=== PATIENT | male | born 2000 | race African-American/Black ===

== ENCOUNTER 2019-11-24 17:40 | Emergency (ER) | payer OTHER ==
[~2019-11-24] VITALS: Ht 180.3 cm; Wt 71.3 kg
[2019-11-24 20:25] LABS: ALBUMIN 4.2 GM/DL (3.2-5.2); ALT/SGPT 17 U/L (12-78); BASO % 0.3 % (0.0-1.0); BILIRUBIN,DIRECT 0.2 MG/DL (0.0-0.2); BILIRUBIN,TOTAL 0.7 MG/DL (0.2-1.0); BLOOD UREA NITROGEN 13 MG/DL (7-18); CARBON DIOXIDE LEVEL 26 MEQ/L (21-32); CHLORIDE LEVEL 106 MEQ/L (98-107); CREATININE FOR GFR 0.97 MG/DL (0.70-1.30); EOS % 0.4 % (0.0-3.0); GLUCOSE, FASTING 80 MG/DL (70-100); HEMATOCRIT 43.2 % (42.0-52.0); HEMOGLOBIN 14.5 g/dl (13.5-17.5); LIPASE 123 U/L (73-393); LYMPH # 0.9 10^3/uL (1.5-5.0); LYMPH % 13.2 % (24.0-44.0); MEAN CORPUSCULAR HEMOGLOBIN 29.9 pg (27.0-33.0); MEAN CORPUSCULAR HGB CONC 33.6 g/dl (32.0-36.5); MEAN CORPUSCULAR VOLUME 89.1 fl (80.0-96.0); MONO # 0.7 10^3/uL (0.0-0.8); MONO % 10.1 % (0.0-5.0); NEUTROPHILS # 5.2 10^3/uL (1.5-8.5); NEUTROPHILS % 75.7 % (36.0-66.0); PLATELET COUNT, AUTOMATED 216 10^3/uL (150-450); POTASSIUM SERUM 4.2 MEQ/L (3.5-5.1); RED BLOOD COUNT 4.85 10^6/uL (4.30-6.10); SODIUM LEVEL 138 MEQ/L (136-145); TOTAL PROTEIN 7.9 GM/DL (6.4-8.2); WHITE BLOOD COUNT 6.9 10^3/uL (4.0-10.0)
[2019-11-24 20:38] VITALS: BP 126/71
== END 2019-11-24 20:46 | disposition home or self-care (01) ==
LOC: M ED 17:40
DX: R19.7 Diarrhea, unspecified (principal)
CPT/HCPCS: 36415; 80048; 80076; 83690; 85025; 87880; 99284; U0003

== ENCOUNTER → 2019-12-14 | Outpatient (CLI) | payer OTHER | LOC: M LABSMTC 10:22 | PROVIDERS: ATTEND Family Medicine | DX: Z20.828 Contact with and (suspected) exposure to other viral communicable diseases (principal) | CPT/HCPCS: C9803; U0003 ==

== ENCOUNTER → 2020-02-29 | Outpatient (CLI) | payer OTHER ==
[~2020-02-29] MED LIST: ISOVUE-300 61% 50ML VIAL As Ordered ONE; LIDOCAINE 1% MDV 20ML VIAL As Ordered ONE; TRIAMCINOLONE ACETONIDE SUSP 40 MG/ML VIAL (J3301) As Ordered ONE
--- NOTE | 2020-02-29 17:02 | REP ---
INDICATION: LEFT HIP PAIN. COMPARISON: None TECHNIQUE: The procedure was performed by RUBIO Akbar, under the direct supervision of Dr. Faye. The benefits and risks of the procedure were explained to the patient, and an informed consent was obtained. Directly prior to the start of the procedure, a formal time-out was completed in the procedure room. The left femoral neck joint space was localized using fluoroscopic guidance. The skin was prepped and draped in a sterile fashion. Approximately 5 mL of 1% Lidocaine 10 mg/ml was used as a local anesthetic. Using fluoroscopic guidance, a #22 gauge spinal needle was inserted and advanced into the left femoral neck joint space. Approximately 1 mL of Isovue 300 was injected to verify placement. Ten mL of a solution containing 9 mL 1% lidocaine 10 mg/ml and 1 mL of Kenalog 40 milligrams/milliliter was injected into the joint space. The needle was removed and hemostasis was achieved. 0.1 minutes of fluoroscopy time was utilized for this procedure. Some fluoroscopic images are performed with last image hold technology. These images require no additional radiation. FINDINGS: The patient tolerated the procedure well and there were no immediate complications. IMPRESSION: 1. Left femoral neck intra-articular joint injection under fluoroscopic guidance. <Electronically signed by Vicenta Stewart > 02/29/20 1310 <Electronically signed by Delroy Faye > 02/29/20 [id number]
== END ==
LOC: M RADPRO 11:13
PROVIDERS: ATTEND Student in an Organized Health Care Education/Training Program
DX: M25.552 Pain in left hip (principal)
CPT/HCPCS: 20610; 77002; J3301; Q9967

== ENCOUNTER → 2021-05-02 | Outpatient (REF) | LOC: M PLAIMG 10:56 | PROVIDERS: ATTEND Internal Medicine | DX: R06.02 Shortness of breath (principal) ==

== ENCOUNTER 2021-05-07 06:28 | Emergency (ER) | payer OTHER ==
[~2021-05-07] VITALS: Ht 182.9 cm; Wt 75.9 kg
[2021-05-07] MEDS ORDERED: DOXY-443 PO (08:15)
[2021-05-07 08:51] VITALS: BP 116/70
== END 2021-05-07 08:54 | disposition home or self-care (01) ==
LOC: M ED 06:28
DX: J32.0 Chronic maxillary sinusitis (principal)